=== PATIENT | female | born 1980 | race Hispanic/Latino ===

== ENCOUNTER 2023-12-19 12:19 | Emergency (ER) | payer BC ==
[~2023-12-19] VITALS: Ht 157.5 cm; Wt 64.9 kg
[2023-12-19 13:03] VITALS: PULSE 70; RESP 17; TEMP 98.2; O2SAT 100
[2023-12-19] MEDS ORDERED: DICYCLOMINE HCL20 MG PO (13:37)
== END 2023-12-19 13:56 | disposition home or self-care (01) ==
LOC: ER 13:04
DX: K52.9 Noninfective gastroenteritis and colitis, unspecified (principal); R11.2 Nausea with vomiting, unspecified; F41.9 Anxiety disorder, unspecified; F32.A Depression, unspecified; Z98.84 Bariatric surgery status
CPT/HCPCS: 99282